=== PATIENT | female | born 1945 | race Caucasian/White ===

== ENCOUNTER 2019-04-27 14:43 | Emergency (ER) | payer MEDICAID, MEDICARE ==
--- OUTSIDE RECORDS SUMMARY | 2019-04-27 14:53 | XMS REPORT | Continuity of Care Document ---
:1945 External Reference #:[id number] Author Name Josue Dominguez Care Team Providers Name Role Phone Hodan Snyder PA Primary Care Physician Unavailable Payers Date Identification Numbers Payment Provider Subscriber Effective: 2011 Policy Number: [id number] [employer] Rhea Nolasco Group Name: Medicare [address] [address] PayID: [id number] Attn: [place] [address] Problems Active Problems Provider Date Allergic rhinitis Onset: 09/30/2018 Irritable bowel syndrome Onset: 08/07/2018 Hyperlipidemia Onset: 01/03/2016 Pure hypercholesterolemia Onset: 2012 Essential hypertension Onset: 10/26/2011 Atrial fibrillation Onset: 10/26/2011 Anxiety state Onset: 10/26/2011 Constipation Onset: 10/26/2011 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 Asthma without status asthmaticus Onset: 10/26/2011 Difficulty reading SO [place] Onset: 01/23/2019 Family History Date Family Member(s) Observation Comments Father due to Motor Vehicle () - Pinned between Accident 2 trucks Mother due to Unknown Causes () Siblings 4 First Brother Cerebrovascular Accident (CVA) Mild Second Brother Unknown First Sister GI Issues Second Sister Migraine Social History Type Date Description Comments Sex Unknown Marital Status Lives With Alone Occupation Retired ETOH Use Rarely consumes alcohol Tobacco Use Start: 11/19/64 End: Patient is a former smoker 11/19/95 Recreational Drug Use Denies Drug Use Smoking Status Reviewed: 04/17/19 Patient is a former smoker Allergies, Adverse Reactions, Alerts Active Allergies Reaction Severity Comments Date Amoxicillin hives 11/22/2018 Medications Active Medications SIG Qnty Indications Ordering Date Provider Flonase Allergy 2 sprays 9.900ml H68.001 Alexy 04/17/2019 Relief intranasal every MD Chuy 50mcg/Act day Suspension Miralax 17 grams by mouth 200GMS Alexy 01/23/2019 Powder every day as MD Chuy needed Eql Heartburn Relief one pill twice a 180tabs K21.9 Alexy 08/08/2017 Maximum Strength day MD Chuy 150mg Tablets Warfarin Sodium take as directed 100tabs [place] 10/21/2014 1mg MD Chuy Tablets Crestor 1 by mouth every 90tabs E78.5 [place] 12/17/2013 10mg Tablets day MD Chuy Lisinopril one every day 90tabs [place] 10/26/2011 5mg MD Chuy Tablets History Medications Benzonatate 1 by mouth three 30caps R05 [place] 12/24/2018 - 200mg times a day MD Chuy 01/01/2019 Capsules Doxycycline Hyclate 1 by mouth twice 20tabs J20.9 [place] 12/24/2018 - a day MD Chuy 01/01/2019 100mg Tablets Prednisone day 1and day 2 9tabs R05 [place] 03/05/2018 - 20mg two tablets MD Chuy 03/25/2018 Tablets qd,then day3,4,5 one qd,the one half tabletday 6,7,8,9 Zithromax day number one 6tabs J20.9 [place] 03/05/2018 - 250mg two qd,then MD Chuy 03/25/2018 Tablets two thru five one pill every day Tessalon Perles one pill three 30caps R05 [place] 12/12/2017 - 100mg times a day as MD Chuy 12/12/2017 Capsules needed for cough Benzonatate one three times 30caps [address] [place] [address] 12/12/2017 - 200mg a day as needed MD Chuy 02/04/2018 Capsules cough Claritin 1 by mouth every 30caps J30.9 [place] 06/08/2016 - 10mg day MD Chuy 03/26/2019 Capsules Zithromax day number one 6tabs J01.90 [place] 05/16/2016 - 250mg two qd,thendays MD Chuy 06/08/2016 Tablets two thru five one pill every day Diflucan 1 by mouth every 1tabs B37.9 Alexy 10/27/2015 - 150mg day MD [place] 01/03/2016 Tablets Doxycycline Hyclate 1 by mouth twice 20caps J20.9 Alexy 10/07/2015 - a day for 10 MD Chuy 01/03/2016 100mg Capsules days Ventolin HFA 2 puffs every 4 18units J98.01 Alexy 10/07/2015 - as needed MD Chuy 03/05/2018 108(90Base) mcg/Act Aerosol Diflucan 1 by mouth every 1tabs 112.9 Alexy 04/20/2015 - 150mg day MD Chuy 07/01/2015 Tablets Diflucan 1 by mouth every 1tabs 616.10 Alexy 02/02/2015 - 150mg day MD Chuy 07/01/2015 Tablets Triamcinolone apply to 30units 691.8 Alexy 02/02/2015 - Acetonide affected area MD Chuy 07/01/2015 0.5% Cream bid for 3 daysprn itching Florastor oe qd 564.1 Alexy 11/04/2014 - 250mg MD Chuy 05/08/2015 Capsules Levaquin 1 by mouth every 7tabs 466.0 Alexy 06/04/2014 - 500mg day MD Chuy 06/23/2014 Tablets Ventolin HFA 2 puffs every 4 1units Alexy 04/29/2014 - as needed MD Chuy 01/03/2016 108(90Base) mcg/Act Aerosol Benzonatate one three times 30caps Alexy 04/29/2014 - 200mg a day as needed MD Chuy 06/23/2014 Capsules cough Zithromax day number one 6tabs 478.9 Alexy 04/29/2014 - 250mg two qd,thendays MD Chuy 05/08/2014 Tablets two thru five one pill every day Zocor one q evening 90tabs 272.4 Alexy 06/25/2013 - 40mg Tablets MD Chuy 08/25/2013 Fenofibrate 1 po qd 90tabs Alexy 06/25/2013 - 48mg MD Chuy 06/25/2013 Tablets Atorvastatin Calcium 1 po qd 30tabs Alexy 06/25/2013 - MD Chuy 06/25/2013 80mg Tablets Biaxin 1 po bid 20tabs 681.00 Alexy 01/09/2013 - 500mg Tablets MD Chuy 06/25/2013 Simvastatin Take One Tablet 30tabs Alexy 12/31/2012 - 40mg By Mouth In The MD Chuy 08/25/2013 Tablets Evening Zithromax day number one 6tabs 466.0 Alexy 03/12/2012 - 250mg two qd,thendays MD Chuy 04/16/2012 Tablets two thru five one pill qd Aspirin Adult Low 1 po qd Alexy 10/26/2011 - Strength MD Chuy 10/21/2014 81mg [place] Simvastatin 1 qhs Alexy 10/26/2011 - 20mg MD Chuy 10/26/2011 Tablets Zocor one q evening 30tabs Alexy 10/26/2011 - 40mg Tablets MD Chuy 06/25/2013 Diflucan one qd 1tabs Alexy 10/26/2011 - 150mg MD hCuy 06/25/2013 Tablets Immunizations CPT Code Status Date Vaccine Lot # [id number] Given 09/25/2018 Fluzone High Dose 66910 Given 09/07/2016 Pneumococcal Conjugate Vaccine 13 Valent For Intramuscular Use 51248 Given 12/25/2012 Tdap - Tetanus/Diptheria/Acellular Pertussis 50506 Given 09/13/2010 Pneumonia Vaccine 61801 Refused 09/20/2017 Fluzone High Dose Vital Signs Date Vital Result Comment 04/17/2019 10:43am Weight 177.50 lb BP Systolic Sitting 120 mmHg BP Diastolic Sitting 50 mmHg 03/26/2019 10:08am Weight 178.50 lb BP Systolic Sitting 118 mmHg BP Diastolic Sitting 60 mmHg 03/26/2019 9:33am Height 65 inches 5'5" Weight 177.38 lb BP Systolic Sitting 118 mmHg BP Diastolic Sitting 60 mmHg Respiratory Rate 12 /min Body Temperature 98.8 F BMI (Body Mass Index) 29.5 kg/m2 01/23/2019 10:09am Weight 188.00 lb BP Systolic Sitting 120 mmHg BP Diastolic Sitting 60 mmHg 01/01/2019 1:02pm Weight 188.00 lb BP Systolic Sitting 124 mmHg BP Diastolic Sitting 70 mmHg 12/24/2018 2:22pm Weight 188.00 lb Respiratory Rate 16 /min Body Temperature 99.4 F 12/17/2018 2:20pm Weight 188.00 lb BP Systolic 126 mmHg BP Diastolic 76 mmHg 09/25/2018 9:55am Weight 188.00 lb BP Systolic 118 mmHg BP Diastolic 70 mmHg 08/07/2018 11:23am Weight 185.00 lb BP Systolic 120 mmHg BP Diastolic 80 mmHg 06/25/2018 10:08am Weight 185.00 lb BP Systolic 120 mmHg BP Diastolic 70 mmHg 03/25/2018 9:38am Height 65 inches Weight 174.00 lb Heart Rate 68 /min BP Systolic 126 mmHg BP Diastolic 70 mmHg Respiratory Rate 12 /min Body Temperature 98.8 F BMI (Body Mass Index) 29.0 kg/m2 03/05/2018 11:30am Weight 174.00 lb Heart Rate 77 /min BP Systolic 120 mmHg BP Diastolic 70 mmHg Body Temperature 100.3 F 02/04/2018 9:48am Weight 178.00 lb BP Systolic 122 mmHg BP Diastolic 70 mmHg 12/12/2017 3:01pm Weight 176.00 lb BP Systolic 124 mmHg BP Diastolic 74 mmHg Body Temperature 99.4 F 12/05/2017 1:01pm Weight 179.00 lb BP Systolic 128 mmHg BP Diastolic 78 mmHg 09/20/2017 9:26am Weight 181.00 lb BP Systolic 130 mmHg BP Diastolic 78 mmHg 09/05/2017 1:03pm Weight 182.00 lb BP Systolic 124 mmHg BP Diastolic 70 mmHg 06/21/2017 9:17am Weight 182.00 lb BP Systolic 124 mmHg BP Diastolic 74 mmHg 03/28/2017 1:08pm Weight 178.00 lb BP Systolic 122 mmHg BP Diastolic 70 mmHg Body Temperature 98.9 F 03/22/2017 9:23am Height 65 inches Weight 178.00 lb Heart Rate 64 /min BP Systolic 124 mmHg BP Diastolic 70 mmHg Respiratory Rate 12 /min Body Temperature 97.0 F BMI (Body Mass Index) 29.6 kg/m2 12/07/2016 9:41am Weight 185.00 lb BP Systolic 120 mmHg BP Diastolic 70 mmHg 10/19/2016 1:31pm Weight 183.00 lb BP Systolic 122 mmHg BP Diastolic 70 mmHg Body Temperature 98.9 F 09/07/2016 8:52am Weight 180.00 lb BP Systolic 126 mmHg BP Diastolic 78 mmHg 06/08/2016 9:15am Weight 179.00 lb 06/08/2016 9:46am BP Systolic 124 mmHg BP Diastolic 72 mmHg 05/16/2016 2:10pm Weight 175.00 lb Body Temperature 99.0 F 03/09/2016 9:28am Height 65.6 inches Weight 173.00 lb Heart Rate 64 /min BP Systolic 120 mmHg BP Diastolic 60 mmHg Respiratory Rate 12 /min Body Temperature 98.8 F BMI (Body Mass Index) 28.3 kg/m2 01/03/2016 9:31am Weight 177.00 lb BP Systolic 118 mmHg BP Diastolic 68 mmHg 10/27/2015 1:31pm Weight 177.00 lb BP Systolic 120 mmHg BP Diastolic 70 mmHg 10/07/2015 2:00pm Weight 177.00 lb Heart Rate 97 /min BP Systolic 120 mmHg BP Diastolic 70 mmHg Body Temperature 98.7 F 10/01/2015 10:25am Weight 177.00 lb BP Systolic 124 mmHg BP Diastolic 70 mmHg 07/21/2015 3:19pm Weight 173.00 lb BP Systolic 122 mmHg BP Diastolic 76 mmHg 07/01/2015 10:04am Weight 173.00 lb 05/14/2015 9:51am Weight 181.00 lb BP Systolic 120 mmHg BP Diastolic 80 mmHg 04/20/2015 10:04am Weight 182.00 lb 03/01/2015 9:32am Height 66 inches Weight 181.00 lb Heart Rate 66 /min BP Systolic 134 mmHg BP Diastolic 80 mmHg Respiratory Rate 14 /min Body Temperature 98.8 F BMI (Body Mass Index) 29.2 kg/m2 02/02/2015 2:58pm Weight 181.00 lb BP Systolic 122 mmHg BP Diastolic 78 mmHg 12/24/2014 8:52am Weight 183.00 lb BP Systolic 120 mmHg BP Diastolic 78 mmHg 12/24/2014 9:24am BP Systolic 120 mmHg BP Diastolic 80 mmHg 11/04/2014 1:20pm Weight 182.00 lb BP Systolic 118 mmHg BP Diastolic 70 mmHg 10/21/2014 3:26pm Weight 181.00 lb BP Systolic 112 mmHg BP Diastolic 70 mmHg 09/23/2014 8:45am Weight 187.00 lb BP Systolic 112 mmHg BP Diastolic 70 mmHg 06/23/2014 9:14am Weight 185.00 lb Heart Rate 60 /min BP Systolic 110 mmHg BP Diastolic 68 mmHg 06/08/2014 9:18am Weight 185.00 lb Heart Rate 68 /min BP Systolic 114 mmHg BP Diastolic 78 mmHg Body Temperature 97.8 F 06/04/2014 12:54pm Weight 185.00 lb BP Systolic 110 mmHg BP Diastolic 70 mmHg 05/08/2014 10:16am Weight 191.00 lb BP Systolic 124 mmHg BP Diastolic 78 mmHg 04/29/2014 10:45am Weight 191.00 lb BP Systolic 128 mmHg BP Diastolic 76 mmHg 02/26/2014 9:24am Height 66 inches Weight 196.00 lb Heart Rate 60 /min BP Systolic 126 mmHg BP Diastolic 78 mmHg Respiratory Rate 14 /min Body Temperature 98.8 F BMI (Body Mass Index) 31.6 kg/m2 12/17/2013 9:09am Weight 194.00 lb BP Systolic 126 mmHg BP Diastolic 74 mmHg 11/17/2013 9:30am Weight 191.00 lb BP Systolic 124 mmHg BP Diastolic 78 mmHg 09/25/2013 10:26am Weight 191.00 lb BP Systolic 124 mmHg BP Diastolic 78 mmHg 09/18/2013 9:27am Weight 191.00 lb BP Systolic 128 mmHg BP Diastolic 80 mmHg 08/25/2013 9:08am Weight 192.00 lb BP Systolic 110 mmHg BP Diastolic 60 mmHg 08/07/2013 3:44pm Weight 189.00 lb BP Systolic 124 mmHg BP Diastolic 80 mmHg 06/25/2013 8:57am Weight 190.00 lb BP Systolic 120 mmHg BP Diastolic 78 mmHg 03/25/2013 8:58am Weight 190.00 lb BP Systolic 124 mmHg BP Diastolic 78 mmHg 02/25/2013 11:07am Height 65.6 inches Weight 187.00 lb Heart Rate 64 /min BP Systolic 124 mmHg BP Diastolic 70 mmHg Respiratory Rate 14 /min Body Temperature 98.8 F BMI (Body Mass Index) 30.5 kg/m2 01/23/2013 2:21pm Height 65.6 inches Weight 187.00 lb Heart Rate 60 /min BP Systolic 126 mmHg BP Diastolic 78 mmHg Respiratory Rate 14 /min Body Temperature 98.7 F BMI (Body Mass Index) 30.5 kg/m2 01/09/2013 10:24am Weight 188.00 lb Body Temperature 98.7 F 12/31/2012 1:04pm Body Temperature 98.4 F 12/27/2012 9:35am Weight 188.00 lb Body Temperature 98.5 F 12/25/2012 1:18pm Weight 188.00 lb 11/25/2012 10:08am Height 65.6 inches Weight 188.00 lb BP Systolic 126 mmHg BP Diastolic 60 mmHg BMI (Body Mass Index) 30.7 kg/m2 08/27/2012 10:54am Weight 189.00 lb BP Systolic 120 mmHg BP Diastolic 80 mmHg 05/27/2012 10:14am Height 65.6 inches Weight 188.00 lb BP Systolic 128 mmHg BMI (Body Mass Index) 30.7 kg/m2 04/09/2012 11:02am Height 65.6 inches Weight 188.00 lb BP Systolic 128 mmHg BP Diastolic 78 mmHg BMI (Body Mass Index) 30.7 kg/m2 03/12/2012 9:21am Weight 188.00 lb BP Systolic 124 mmHg BP Diastolic 70 mmHg Body Temperature 99.0 F 01/25/2012 10:24am Height 65.6 inches Weight 192.00 lb BP Systolic 120 mmHg BP Diastolic 78 mmHg BMI (Body Mass Index) 31.4 kg/m2 01/12/2012 9:54am Weight 192.00 lb BP Systolic 130 mmHg BP Diastolic 78 mmHg 2012 11:01am Height 65.6 inches Weight 192.00 lb BP Systolic 128 mmHg BP Diastolic 80 mmHg BMI (Body Mass Index) 31.4 kg/m2 10/26/2011 10:26am Height 65.6 inches Weight 192.00 lb Heart Rate 70 /min BP Systolic 128 mmHg BP Diastolic 84 mmHg Respiratory Rate 14 /min Body Temperature 98.6 F BMI (Body Mass Index) 31.4 kg/m2 Results Test Date Facility Test Result H/L Range Note Liver Function Panel 09/10/2018 N2N/CCD Import Alb/Glob 1.0 ratio 1 Albumin 3.8 g/dL 3.4-5 Alkaline Phosphatase 83 U/L 45-117 Bilirubin,Direct 0.3 mg/dL High 0-0.2 Bilirubin,Indirect 1.0 mg/dL High 0-0.9 Bilirubin,Total 1.3 mg/dL High 0.2-1 Globulin 4.0 g/dL 1.9-4.3 SGPT/Alt 21 U/L 12-78 Sgot/Ast 19 U/L 15-37 Total Protein 7.8 g/dL 6.4-8.2 Basic Metabolic Panel 09/10/2018 N2N/CCD Import Anion Gap 7 mEq/L Low 8- 16 BUN 10 mg/dL 7-18 BUN/Creat 12.5 ratio Calcium 8.8 mg/dL 8.5-10.1 Carbon Dioxide 31 mmol/L 21-32 Chloride 105 mmol/L 98-107 Creatinine 0.8 mg/dL 0.6-1.3 Glom Filtration Rate, Estimate >60 mL/min Glucose 91 mg/dL 74-106 If >60 mL/min 2 Potassium 4.0 mmol/L 3.5-5.1 Sodium 143 mmol/L 136-145 CBC Auto Diff 09/10/2018 N2N/CCD Import Bas% 0.2 % 0-1.1 Baso # 0.01 K/uL 0-0.1 Eo% 0.7 % 0-6.6 Eos # 0.04 K/uL 0-0.5 Hematocrit 44.8 % 36-46.1 Hemoglobin 14.4 gm/dL 11.6-15.8 Lymph # 1.28 K/uL 1-4 Lymph % 23.9 % 20-42 Mean Cell Volume 96.3 fl 80.9-99 Mean Corpuscular HGB 31.0 pg 25.9-32.7 Mean Corpuscular HGB Conc 32.1 g/dL 30.8-34.3 Mean Platelet Volume 11.0 fL 8.9-12.4 [place] # 0.42 K/uL 0.3-0.9 [place] % 7.9 % 4.3-13.2 Neut# 3.60 K/uL 1.8-7 Neut% 67.3 % 40.4-72.8 Platelet Count 206 K/uL 155-360 Red Blood Count 4.65 M/uL 3.9-5.4 Red Cell Distri Width %CV 12.8 % 11.7-14.4 Red Cell Distri Width SD 44.0 fl 3-47 White Blood Count 5.4 K/uL 3.1-10.7 Lipid Profile (Trig/Chol/HDL) 09/10/2018 N2N/CCD Import Cholesterol 146 mg/ dL 3 HDL Cholesterol 63 mg/dL 4 LDL-Cholesterol 61 mg/dL 5 Triglycerides 110 mg/dL 6 Imaging finding 04/16/2018 N2N/CCD Import Dexa scan <pending> Liver Function Panel 03/18/2018 N2N/CCD Import Alb/Glob 0.9 ratio 7 Albumin 3.5 g/dL 3.4-5 Alkaline Phosphatase 76 U/L 45-117 Bilirubin,Direct 0.2 mg/dL 0-0.2 Bilirubin,Indirect 1.1 mg/dL High 0-0.9 Bilirubin,Total 1.3 mg/dL High 0.2-1 Globulin 4.0 g/dL 1.9-4.3 SGPT/Alt 22 U/L 12-78 Sgot/Ast 18 U/L 15-37 Total Protein 7.5 g/dL 6.4-8.2 Basic Metabolic Panel 03/18/2018 N2N/CCD Import Anion Gap 3 mEq/L Low 8- 16 BUN 8 mg/dL 7-18 BUN/Creat 11.4 ratio Calcium 9.1 mg/dL 8.5-10.1 Carbon Dioxide 31 mmol/L 21-32 Chloride 105 mmol/L 98-107 Creatinine 0.7 mg/dL 0.6-1.3 Glom Filtration Rate, Estimate >60 mL/min Glucose 91 mg/dL 74-106 If >60 mL/min 8 Potassium 4.9 mmol/L 3.5-5.1 Sodium 139 mmol/L 136-145 CBC Auto Diff 03/18/2018 N2N/CCD Import Bas% 0.3 % 0-1.1 Baso # 0.02 K/uL 0-0.1 Eo% 1.3 % 0-6.6 Eos # 0.10 K/uL 0-0.5 Hematocrit 46.0 % 36-46.1 Hemoglobin 15.1 gm/dL 11.6-15.8 Lymph # 1.42 K/uL 1-4 Lymph % 18.5 % Low 20-42 Mean Cell Volume 96.6 fl 80.9-99 Mean Corpuscular HGB 31.7 pg 25.9-32.7 Mean Corpuscular HGB Conc 32.8 g/dL 30.8-34.3 Mean Platelet Volume 10.6 fL 8.9-12.4 [place] # 0.62 K/uL 0.3-0.9 [place] % 8.1 % 4.3-13.2 Neut# 5.53 K/uL 1.8-7 Neut% 71.8 % 40.4-72.8 Platelet Count 209 K/uL 155-360 Red Blood Count 4.76 M/uL 3.9-5.4 Red Cell Distri Width %CV 13.1 % 11.7-14.4 Red Cell Distri Width SD 45.5 fl 3-47 White Blood Count 7.7 K/uL 3.1-10.7 Lipid Profile (Trig/Chol/HDL) 03/18/2018 N2N/CCD Import Cholesterol 154 mg/ dL 9 HDL Cholesterol 66 mg/dL 10 LDL-Cholesterol 60 mg/dL 11 Triglycerides 138 mg/dL 12 CBS W/Automated Diff 10/15/2017 N2N/CCD Import Bas% 0.4 % 0-1.1 13 Baso # 0.02 K/uL 0-0.1 Eo% 1.7 % 0-6.6 Eos # 0.08 K/uL 0-0.5 Hematocrit 44.1 % 36-46.1 Hemoglobin 14.4 gm/dL 11.6-15.8 Lymph # 1.33 K/uL 1-4 Lymph % 27.5 % 20-42 Mean Cell Volume 95.7 fl 80.9-99 Mean Corpuscular HGB 31.2 pg 25.9-32.7 Mean Corpuscular HGB Conc 32.7 g/dL 30.8-34.3 Mean Platelet Volume 10.5 fL 8.9-12.4 [place] # 0.38 K/uL 0.3-0.9 [place] % 7.9 % 4.3-13.2 Neut# 3.02 K/uL 1.8-7 Neut% 62.5 % 40.4-72.8 Platelet Count 199 K/uL 150-400 Red Blood Count 4.61 M/uL 3.9-5.4 Red Cell Distri Width %CV 13.0 % 11.7-14.4 Red Cell Distri Width SD 44.0 fl 3-47 White Blood Count 4.8 K/uL 3.1-10.7 Comprehensive Metabolic Panel 10/15/2017 N2N/CCD Import Alb/Glob 0.8 ratio Albumin 3.3 g/dL Low 3.4-5 Alkaline Phosphatase 77 U/L 45-117 Anion Gap 6 mEq/L Low 8-16 BUN 11 mg/dL 7-18 BUN/Creat 15.7 ratio Bilirubin,Total 1.0 mg/dL 0.2-1 Calcium 8.9 mg/dL 8.5-10.1 Carbon Dioxide 28 mmol/L 21-32 Chloride 107 mmol/L 98-107 Creatinine 0.7 mg/dL 0.6-1.3 Globulin 4.1 g/dL 1.9-4.3 Glom Filtration Rate, Estimate >60 mL/min Glucose 91 mg/dL 74-106 If >60 mL/min 14 Potassium 4.2 mmol/L 3.5-5.1 SGPT/Alt 24 U/L 12-78 Sgot/Ast 22 U/L 15-37 Sodium 141 mmol/L 136-145 Total Protein 7.4 g/dL 6.4-8.2 LDL Cholesterol Profile 10/15/2017 N2N/CCD Import Cholesterol 138 mg/dL 15 HDL Cholesterol 61 mg/dL 16 LDL-Cholesterol 56 mg/dL 17 Triglycerides 103 mg/dL 18 Protime 10/15/2017 N2N/CCD Import Anticoagulant Therapy? Yes Date of Last Dose: [id number] 1 Inr 1.8 1 High 0.9-1.1 19 Protime 20.3 s High 12-14.4 Time of Last Dose: 1900 1 Imaging finding 04/09/2017 N2N/CCD Import bilateral mammogram <pending> Protime 01/10/2017 N2N/CCD Import Anticoagulant Therapy? Yes 20 Date of Last Dose: 01/09/17 Inr 2.6 1 High 0.9-1.1 21 Protime 26.7 s High 12-14.4 Time of Last Dose: 700PM Imaging finding 10/05/2016 N2N/CCD Import left breast U/S Dx 92.8 Basic Metabolic Panel 03/23/2016 N2N/CCD Import Anion Gap 8 mEq/L 8-16 BUN 11 mg/dL 7-18 BUN/Creat 15.7 ratio Calcium 8.7 mg/dL 8.5-10.1 Carbon Dioxide 26 mmol/L 21-32 Chloride 107 mmol/L 98-107 Creatinine 0.7 mg/dL 0.6-1.3 Glom Filtration Rate, Estimate >60 mL/min Glucose 82 mg/dL 74-106 If >60 mL/min 22 Potassium 3.8 mmol/L 3.5-5.1 Sodium 141 mmol/L 136-145 LDL Cholesterol Profile 03/23/2016 N2N/CCD Import Cholesterol 136 mg/dL 23 HDL Cholesterol 51 mg/dL 24 LDL-Cholesterol 63 mg/dL 25 Triglycerides 109 mg/dL 26 Liver Function Tests 03/23/2016 N2N/CCD Import Alb/Glob 0.9 ratio Albumin 3.7 g/dL 3.4-5 Alkaline Phosphatase 74 U/L 45-117 Bilirubin,Direct 0.2 mg/dL 0-0.2 Bilirubin,Indirect 1.3 mg/dL High 0-0.9 Bilirubin,Total 1.5 mg/dL High 0.2-1 Globulin 3.9 g/dL 1.9-4.3 SGPT/Alt 31 U/L 12-78 Sgot/Ast 19 U/L 15-37 Total Protein 7.6 g/dL 6.4-8.2 Imaging finding 10/13/2015 N2N/CCD Import left breast <pending> mammography Protime 10/08/2015 N2N/CCD Import Inr 2.5 1 High 0.9-1.1 27 Protime 27.5 s High 12.1-14.9 Imaging finding 09/24/2015 N2N/CCD Import left breast U/S <pending> Basic Metabolic Panel 09/23/2015 N2N/CCD Import Anion Gap 5 mEq/L Low 8- 16 BUN 10 mg/dL 7-18 BUN/Creat 14.2 ratio Calcium 9.1 mg/dL 8.5-10.1 Carbon Dioxide 29 mmol/L 21-32 Chloride 106 mmol/L 98-107 Creatinine 0.7 mg/dL 0.6-1.3 Glom Filtration Rate, Estimate >60 mL/min Glucose 88 mg/dL 74-106 If >60 mL/min 28 Potassium 4.6 mmol/L 3.5-5.1 Sodium 140 mmol/L 136-145 LDL Cholesterol Profile 09/23/2015 N2N/CCD Import Cholesterol 161 mg/dL 29 HDL Cholesterol 54 mg/dL 30 LDL-Cholesterol 82 mg/dL 31 Triglycerides 126 mg/dL 32 Liver Function Tests 09/23/2015 N2N/CCD Import Alb/Glob 1.0 ratio Albumin 3.6 g/dL 3.4-5 Alkaline Phosphatase 84 U/L 45-117 Bilirubin,Direct 0.2 mg/dL 0-0.2 Bilirubin,Indirect 0.9 mg/dL 0-0.9 Bilirubin,Total 1.1 mg/dL High 0.2-1 Globulin 3.7 g/dL 1.9-4.3 SGPT/Alt 21 U/L 12-78 Sgot/Ast 17 U/L 15-37 Total Protein 7.3 g/dL 6.4-8.2 Protime 05/27/2015 N2N/CCD Import Inr 2.3 1 High 0.9-1.1 33 Protime 25.5 s High 12-14.4 Protime 05/12/2015 N2N/CCD Import Inr 2.6 1 High 0.9-1.1 34 Protime 28.3 s High 12-14.4 Comprehensive Metabolic Panel 05/12/2015 N2N/CCD Import Alb/Glob 0.9 ratio Albumin 3.8 g/dL 3.4-5 Alkaline Phosphatase 90 U/L 45-117 Anion Gap 6 mEq/L Low 8-16 BUN 8 mg/dL 7-18 BUN/Creat 10.0 ratio Bilirubin,Total 1.8 mg/dL High 0.2-1 Calcium 9.5 mg/dL 8.5-10.1 Carbon Dioxide 26 mmol/L 21-32 Chloride 104 mmol/L 98-107 Creatinine 0.8 mg/dL 0.6-1.3 Globulin 4.2 g/dL 1.9-4.3 Glom Filtration Rate, Estimate >60 mL/min Glucose 106 mg/dL 74-106 If >60 mL/min 35 Potassium 3.6 mmol/L 3.5-5.1 SGPT/Alt 39 U/L 12-78 Sgot/Ast 28 U/L 15-37 Sodium 136 mmol/L 136-145 Total Protein 8.0 g/dL 6.4-8.2 Urinalysis With 05/12/2015 N2N/CCD Import Urine Bilirubin - Negative Microscopic Dipstick Urine Blood Small High Urine Clarity Clear Urine Color Yellow Urine Epithelial Cells Few [place]/lpf Urine Glucose - Dipstick Negative mg/dL Urine Ketone Negative mg/dL Urine Leuk Esterase Negative Urine Nitrite - Dipstick Negative Urine PH 6.0 1 Low 6.5-7.5 Urine Protein - Dipstick Negative mg/dL Urine RBC 0-2 rbc/hpf 0-2 Urine Specific [place] <=1.005 Low 1.01-1.03 Urine Urobilinogen - Dipstick 0.2 E.U./dL 0.2-1 Urine WBC 0-2 wbc/hpf 0-7 Laboratory test finding 05/12/2015 N2N/CCD Import Urine Screen See Note 36 CBC W/Automated Diff 05/12/2015 N2N/CCD Import Bas% 0.1 % 0-1.1 Baso # 0.01 K/uL 0-0.1 Eo% 0.2 % 0-6.6 Eos # 0.02 K/uL 0-0.5 Hematocrit 44.8 % 36-46.1 Hemoglobin 15.1 gm/dL 11.6-15.8 Lymph # 1.09 K/uL Low 1.8-7 Lymph % 12.6 % Low 17-46.1 Mean Cell Volume 94.3 fl 80.9-99 Mean Corpuscular HGB 31.8 pg 25.9-32.7 Mean Corpuscular HGB Conc 33.7 g/dL 30.8-34.3 Mean Platelet Volume 10.1 fL 8.9-12.4 [place] # 0.51 K/uL 0.3-0.9 [place] % 5.9 % 4.3-13.2 Neut# 7.00 K/uL 1-7 Neut% 81.2 % High 40.4-72.8 Platelet Count 224 K/uL 155-360 Red Blood Count 4.75 M/uL 3.9-5.4 Red Cell Distri Width %CV 12.6 % 11.7-14.4 Red Cell Distri Width SD 43.0 fl 3-47 White Blood Count 8.6 K/uL 3.1-10.7 Laboratory test 05/12/2015 N2N/CCD Import Occult Blood,Stool Negative finding Laboratory test 05/12/2015 N2N/CCD Import Lipase 115 U/L 73-393 finding Basic Metabolic 03/11/2015 N2N/CCD Import Anion Gap 5 mEq/L Low 8-16 Panel BUN 9 mg/dL 7-18 BUN/Creat 11.2 ratio Calcium 8.6 mg/dL 8.5-10.1 Carbon Dioxide 29 mmol/L 21-32 Chloride 107 mmol/L 98-107 Creatinine 0.8 mg/dL 0.6-1.3 Glom Filtration Rate, Estimate >60 mL/min Glucose 94 mg/dL 74-106 If >60 mL/min 37 Potassium 4.2 mmol/L 3.5-5.1 Sodium 141 mmol/L 136-145 CBC W/Automated Diff 03/11/2015 N2N/CCD Import Bas% 0.6 % 0-1.1 Baso # 0.03 K/uL 0-0.1 Eo% 1.3 % 0-6.6 Eos # 0.07 K/uL 0-0.5 Hematocrit 42.1 % 36-46.1 Hemoglobin 14.0 gm/dL 11.6-15.8 Lymph # 1.71 K/uL Low 1.8-7 Lymph % 32.1 % 17-46.1 Mean Cell Volume 96.8 fl 80.9-99 Mean Corpuscular HGB 32.2 pg 25.9-32.7 Mean Corpuscular HGB Conc 33.3 g/dL 30.8-34.3 Mean Platelet Volume 10.4 fL 8.9-12.4 [place]fe # 0.46 K/uL 0.3-0.9 [place] % 8.6 % 4.3-13.2 Neut# 3.06 K/uL 1-7 Neut% 57.4 % 40.4-72.8 Platelet Count 235 K/uL 155-360 Red Blood Count 4.35 M/uL 3.9-5.4 Red Cell Distri Width %CV 12.6 % 11.7-14.4 Red Cell Distri Width SD 43.6 fl 3-47 White Blood Count 5.3 K/uL 3.1-10.7 LDL Cholesterol Profile 03/11/2015 [employer] Import Cholesterol 139 mg/dL 38 HDL Cholesterol 49 mg/dL 39 LDL-Cholesterol 65 mg/dL 40 Triglycerides 126 mg/dL 41 Liver Function Tests 03/11/2015 [employer] Import Alb/Glob 0.9 ratio Albumin 3.6 g/dL 3.4-5 Alkaline Phosphatase 84 U/L 45-117 Bilirubin,Direct 0.2 mg/dL 0-0.2 Bilirubin,Indirect 1.0 mg/dL High 0-0.9 Bilirubin,Total 1.2 mg/dL High 0.2-1 Globulin 3.9 g/dL 1.9-4.3 SGPT/Alt 24 U/L 12-78 Sgot/Ast 18 U/L 15-37 Total Protein 7.5 g/dL 6.4-8.2 Laboratory test finding 02/16/2014 [employer] Import CK 90 U/L 26-190 LDL Cholesterol Profile 02/16/2014 [employer] Import Cholesterol 164 mg/dL 120-200 HDL Cholesterol 55 mg/dL 29-83 LDL-Cholesterol 80 mg/dL 62-185 Triglycerides 143 mg/dL 16-231 Liver Function Tests 02/16/2014 [employer] Import Alb/Glob 1.0 ratio Albumin 3.7 g/dL 3.5-5 Alkaline Phosphatase 89 U/L 50-136 Bilirubin,Direct 0.1 mg/dL 0.1-0.4 Bilirubin,Indirect 0.7 mg/dL 0-0.9 Bilirubin,Total 0.8 mg/dL 0.2-1.2 Globulin 3.8 g/dL 1.9-4.3 SGPT/Alt 34 U/L 30-65 Sgot/Ast 24 U/L 16-40 Total Protein 7.5 g/dL 6.3-8 LDL Cholesterol Profile 12/08/2013 [employer] Import Cholesterol 177 mg/dL 120-200 HDL Cholesterol 56 mg/dL 29-83 LDL-Cholesterol 84 mg/dL 62-185 Triglycerides 187 mg/dL 16-231 Liver Function Tests 12/08/2013 [employer] Import Alb/Glob 1.0 ratio Albumin 3.6 g/dL 3.5-5 Alkaline Phosphatase 93 U/L 50-136 Bilirubin,Direct 0.1 mg/dL 0.1-0.4 Bilirubin,Indirect 0.6 mg/dL 0-0.9 Bilirubin,Total 0.7 mg/dL 0.2-1.2 Globulin 3.7 g/dL 1.9-4.3 SGPT/Alt 44 U/L 30-65 Sgot/Ast 30 U/L 16-40 Total Protein 7.3 g/dL 6.3-8 Laboratory test 12/08/2013 [employer] Import CK 76 U/L 26-190 finding LDL Cholesterol 09/22/2013 [employer] Import Cholesterol 229 mg/dL High 120- 200 Profile HDL Cholesterol 51 mg/dL 29-83 LDL-Cholesterol 152 mg/dL 62-185 Triglycerides 130 mg/dL 16-231 Liver Function Tests 09/22/2013 [employer] Import Alb/Glob 0.9 ratio Albumin 3.7 g/dL 3.5-5 Alkaline Phosphatase 105 U/L 50-136 Bilirubin,Direct 0.1 mg/dL 0.1-0.4 Bilirubin,Indirect 1.2 mg/dL High 0-0.9 Bilirubin,Total 1.3 mg/dL High 0.2-1.2 Globulin 3.9 g/dL 1.9-4.3 SGPT/Alt 31 U/L 30-65 Sgot/Ast 20 U/L 16-40 Total Protein 7.6 g/dL 6.3-8 Imaging finding 09/18/2013 N[facility] Import xray right <pending> shoulder Laboratory test 09/08/2013 [facility] Import CK 96 U/L 26-190 finding LDL Cholesterol 09/08/2013 [employer] Import Cholesterol 270 mg/dL High 120- 20 Profile 0 HDL Cholesterol 45 mg/dL 29-83 LDL-Cholesterol 177 mg/dL 62-185 Triglycerides 238 mg/dL High 16-231 Liver Function Tests 09/08/2013 N2N/[facility] Import Alb/Glob 0.9 ratio Albumin 3.4 g/dL Low 3.5-5 Alkaline Phosphatase 94 U/L 50-136 Bilirubin,Direct 0.1 mg/dL 0.1-0.4 Bilirubin,Indirect 0.6 mg/dL 0-0.9 Bilirubin,Total 0.7 mg/dL 0.2-1.2 Globulin 3.8 g/dL 1.9-4.3 SGPT/Alt 46 U/L 30-65 Sgot/Ast 29 U/L 16-40 Total Protein 7.2 g/dL 6.3-8 Laboratory test finding 08/18/2013 [facility] Import CK 319 U/L High 26-190 CK-MB (Mass) 3.6 ng/mL 0.5-8.2 Relative % Index 1.1 % 42 Basic Metabolic Panel 08/18/2013 [facility] Import Anion Gap 10 mEq/L 8-16 BUN 8 mg/dL 5-23 BUN/Creat 13.3 ratio Calcium 9.3 mg/dL 8.5-10.1 Carbon Dioxide 30 mEq/L High 18-29 Chloride 103 mmol/L 98-107 Creatinine 0.6 mg/dL 0.5-1.4 Glom Filtration Rate, Estimate >60 mL/min Glucose 93 mg/dL 76-115 If >60 mL/min 43 Potassium 4.2 mmol/L 3.5-5.1 Sodium 139 mmol/L 136-145 LDL Cholesterol Profile 08/18/2013 N[facility]N/[facility] Import Cholesterol 187 mg/dL 120-200 HDL Cholesterol 54 mg/dL 29-83 LDL-Cholesterol 81 mg/dL 62-185 Triglycerides 260 mg/dL High 16-231 Liver Function Tests 08/18/2013 [employer] Import Alb/Glob 0.9 ratio Albumin 3.6 g/dL 3.5-5 Alkaline Phosphatase 99 U/L 50-136 Bilirubin,Direct 0.1 mg/dL 0.1-0.4 Bilirubin,Indirect 0.7 mg/dL 0-0.9 Bilirubin,Total 0.8 mg/dL 0.2-1.2 Globulin 3.9 g/dL 1.9-4.3 SGPT/Alt 39 U/L 30-65 Sgot/Ast 31 U/L 16-40 Total Protein 7.5 g/dL 6.3-8 CBC W/Automated Diff 08/08/2013 [employer] Import Bas% 0.3 % 0-1.1 Baso # 0.02 K/uL 0-0.1 Eo% 1.7 % 0-6.6 Eos # 0.10 K/uL 0-0.5 Hematocrit 43.5 % 36-46.1 Hemoglobin 14.4 gm/dL 11.6-15.8 Lymph # 1.63 K/uL 0.8-3.4 Lymph % 27.5 % 17-46.1 Mean Cell Volume 94.8 fl 80.9-99 Mean Corpuscular HGB 31.4 pg 25.9-32.7 Mean Corpuscular HGB Conc 33.1 g/dL 30.8-34.3 Mean Platelet Volume 10.1 fL 8.9-12.4 Metcalfe # 0.52 K/uL 0.3-0.9 Metcalfe % 8.8 % 4.3-13.2 Neut# 3.65 K/uL 1-7 Neut% 61.7 % 40.4-72.8 Platelet Count 303 K/uL 155-360 Red Blood Count 4.59 M/uL 3.9-5.4 Red Cell Distri Width %CV 12.6 % 11.7-14.4 Red Cell Distri Width SD 42.8 fl 3-47 White Blood Count 5.9 K/uL 3.1-10.7 LDL Cholesterol Profile 06/16/2013 [employer] Import Cholesterol 129 mg/dL 120-200 HDL Cholesterol 50 mg/dL 29-83 LDL-Cholesterol 58 mg/dL Low 62-185 Triglycerides 104 mg/dL 16-231 Liver Function Tests 06/16/2013 [employer] Import Alb/Glob 1.1 ratio Albumin 3.7 g/dL 3.5-5 Alkaline Phosphatase 87 U/L 50-136 Bilirubin,Direct 0.2 mg/dL 0.1-0.4 Bilirubin,Indirect 0.8 mg/dL 0-0.9 Bilirubin,Total 1.0 mg/dL 0.2-1.2 Globulin 3.3 g/dL 1.9-4.3 SGPT/Alt 29 U/L Low 30-65 Sgot/Ast 19 U/L 16-40 Total Protein 7.0 g/dL 6.3-8 Imaging finding 03/05/2013 N2N/CCD Import bilateral <pending> screening mammogram Laboratory test 02/25/2013 [facility] Import ThinPrep Pap: See Note 44 finding Vaginal Basic Metabolic 02/13/2013 [facility] Import Anion Gap 13 mEq/L 8-16 Panel BUN 11 mg/dL 5-23 BUN/Creat 15.7 ratio Calcium 9.3 mg/dL 8.5-10.1 Carbon Dioxide 27 mEq/L 18-29 Chloride 104 mmol/L 98-107 Creatinine 0.7 mg/dL 0.5-1.4 Glom Filtration Rate, Estimate >60 mL/min Glucose 97 mg/dL 76-115 If >60 mL/min 45 Potassium 4.2 mmol/L 3.5-5.1 Sodium 140 mmol/L 136-145 CBS W/Automated Diff 02/13/2013 N2N/[facility]D Import Bas% 0.3 % 0-1.1 Baso # 0.02 K/uL 0-0.1 Eo% 1.9 % 0-6.6 Eos # 0.11 K/uL 0-0.5 Hematocrit 45.1 % 36-46.1 Hemoglobin 14.8 gm/dL 11.6-15.8 Lymph # 1.82 K/uL 0.8-3.4 Lymph % 31.7 % 17-46.1 Mean Cell Volume 94.9 fl 80.9-99 Mean Corpuscular HGB 31.2 pg 25.9-32.7 Mean Corpuscular HGB Conc 32.8 g/dL 30.8-34.3 Mean Platelet Volume 10.4 fL 8.9-12.4 Metcalfe # 0.48 K/uL 0.3-0.9 Metcalfe % 8.4 % 4.3-13.2 Neut# 3.31 K/uL 1-7 Neut% 57.7 % 40.4-72.8 Platelet Count 298 K/uL 155-360 Red Blood Count 4.75 M/uL 3.9-5.4 Red Cell Distri Width %CV 13.1 % 11.7-14.4 Red Cell Distri Width SD 44.2 fl 3-47 White Blood Count 5.7 K/uL 3.1-10.7 LDL Cholesterol 02/13/2013 [facility] Import Cholesterol 326 mg/dL High 120- 200 Profile HDL Cholesterol 55 mg/dL 29-83 LDL-Cholesterol 226 mg/dL High 62-185 Triglycerides 224 mg/dL 16-231 Liver Function Tests 02/13/2013 [facility] Import Alb/Glob 1.0 ratio Albumin 3.9 g/dL 3.5-5 Alkaline Phosphatase 94 U/L 50-136 Bilirubin,Direct 0.1 mg/dL 0.1-0.4 Bilirubin,Indirect 0.7 mg/dL 0-0.9 Bilirubin,Total 0.8 mg/dL 0.2-1.2 Globulin 3.8 g/dL 1.9-4.3 SGPT/Alt 32 U/L 30-65 Sgot/Ast 16 U/L 16-40 Total Protein 7.7 g/dL 6.3-8 Imaging finding 01/09/2013 N2N/[facility] Import xray left ring <pending> finger Laboratory test 12/25/2012 [facility] Import Aerobic Culture See Note 46 finding Gram Stain See Note 47 Basic Metabolic Panel 11/08/2012 [employer] Import Anion Gap 11 mEq/L 8-16 BUN 5 mg/dL 5-23 BUN/Creat 8.3 ratio Calcium 8.5 mg/dL 8.5-10.1 Carbon Dioxide 25 mEq/L 18-29 Chloride 110 mmol/L High 98-107 Creatinine 0.6 mg/dL 0.5-1.4 Glom Filtration Rate, Estimate >60 mL/min Glucose 106 mg/dL 76-115 If >60 mL/min 48 Potassium 3.5 mmol/L 3.5-5.1 Sodium 142 mmol/L 136-145 CBC 11/08/2012 [facility] Import Hematocrit 39.6 % 36-46.1 Hemoglobin 13.0 gm/dL 11.6-15.8 Mean Cell Volume 95.0 fl 80.9-99 Mean Corpuscular HGB 31.2 pg 25.9-32.7 Mean Corpuscular HGB Conc 32.8 g/dL 30.8-34.3 Mean Platelet Volume 10.3 fL 8.9-12.4 Platelet Count 249 K/uL 155-360 Red Blood Count 4.17 M/uL 3.9-5.4 Red Cell Distri Width %CV 12.9 % 11.7-14.4 White Blood Count 6.0 K/uL 3.1-10.7 Hemoglobin/Hematocrit 11/07/2012 [employer] Import Hematocrit 40.7 % 36- 46.1 Hemoglobin 13.4 gm/dL 11.6-15.8 Hemoglobin/Hematocrit 11/07/2012 [facility] Import Hematocrit 40.5 % 36- 46.1 Hemoglobin 13.1 gm/dL 11.6-15.8 Basic Metabolic Panel 11/07/2012 [employer] Import Anion Gap 12 mEq/L 8-16 BUN 6 mg/dL 5-23 BUN/Creat 10.0 ratio Calcium 8.7 mg/dL 8.5-10.1 Carbon Dioxide 27 mEq/L 18-29 Chloride 108 mmol/L High 98-107 Creatinine 0.6 mg/dL 0.5-1.4 Glom Filtration Rate, Estimate >60 mL/min Glucose 108 mg/dL 76-115 If >60 mL/min 49 Potassium 4.0 mmol/L 3.5-5.1 Sodium 143 mmol/L 136-145 CBC W/Automated Diff 11/07/2012 [facility] Import Bas% 0.2 % 0-1.1 Baso # 0.02 K/uL 0-0.1 Eo% 2.3 % 0-6.6 Eos # 0.19 K/uL 0-0.5 Hematocrit 41.0 % 36-46.1 Hemoglobin 13.5 gm/dL 11.6-15.8 Lymph # 1.38 K/uL 0.8-3.4 Lymph % 16.9 % Low 17-46.1 Mean Cell Volume 94.9 fl 80.9-99 Mean Corpuscular HGB 31.3 pg 25.9-32.7 Mean Corpuscular HGB Conc 32.9 g/dL 30.8-34.3 Mean Platelet Volume 10.2 fL 8.9-12.4 Metcalfe # 0.84 K/uL 0.3-0.9 Metcalfe % 10.3 % 4.3-13.2 Neut# 5.75 K/uL 1-7 Neut% 70.3 % 40.4-72.8 Platelet Count 234 K/uL 155-360 Red Blood Count 4.32 M/uL 3.9-5.4 Red Cell Distri Width %CV 12.8 % 11.7-14.4 Red Cell Distri Width SD 43.5 fl 3-47 White Blood Count 8.2 K/uL 3.1-10.7 Laboratory test finding 11/07/2012 [employer] Import Smear For WBC'S Many Smear Source: Stool Laboratory test 11/06/2012 [facility] Import Stool Occult Positive High finding Blood-Single Spec Basic Metabolic 11/06/2012 [facility] Import Anion Gap 13 mEq/L 8-16 Panel BUN 9 mg/dL 5-23 BUN/Creat 15.0 ratio Calcium 9.7 mg/dL 8.5-10.1 Carbon Dioxide 26 mEq/L 18-29 Chloride 104 mmol/L 98-107 Creatinine 0.6 mg/dL 0.5-1.4 Glom Filtration Rate, Estimate >60 mL/min Glucose 103 mg/dL 76-115 If >60 mL/min 50 Potassium 3.8 mmol/L 3.5-5.1 Sodium 139 mmol/L 136-145 CBC W/Automated Diff 11/06/2012 [employer] Import Bas% 0.2 % 0-1.1 Baso # 0.02 K/uL 0-0.1 Eo% 0.5 % 0-6.6 Eos # 0.05 K/uL 0-0.5 Hematocrit 45.3 % 36-46.1 Hemoglobin 15.4 gm/dL 11.6-15.8 Lymph # 1.43 K/uL 0.8-3.4 Lymph % 13.3 % Low 17-46.1 Mean Cell Volume 92.6 fl 80.9-99 Mean Corpuscular HGB 31.5 pg 25.9-32.7 Mean Corpuscular HGB Conc 34.0 g/dL 30.8-34.3 Mean Platelet Volume 9.6 fL 8.9-12.4 Metcalfe # 0.70 K/uL 0.3-0.9 Metcalfe % 6.5 % 4.3-13.2 Neut# 8.54 K/uL High 1-7 Neut% 79.5 % High 40.4-72.8 Platelet Count 286 K/uL 155-360 Red Blood Count 4.89 M/uL 3.9-5.4 Red Cell Distri Width %CV 12.6 % 11.7-14.4 Red Cell Distri Width SD 42.1 fl 3-47 White Blood Count 10.7 K/uL 3.1-10.7 Liver Function Tests 11/06/2012 [employer] Import Alb/Glob 1.0 ratio Albumin 4.1 g/dL 3.5-5 Alkaline Phosphatase 95 U/L 50-136 Bilirubin,Direct 0.2 mg/dL 0.1-0.4 Bilirubin,Indirect 0.7 mg/dL 0-0.9 Bilirubin,Total 0.9 mg/dL 0.2-1.2 Globulin 4.0 g/dL 1.9-4.3 SGPT/Alt 32 U/L 30-65 Sgot/Ast 15 U/L Low 16-40 Total Protein 8.1 g/dL High 6.3-8 Protime 11/06/2012 [facility] Import Inr 0.9 1 0.9-1.1 51 Protime 12.5 s 12.1-14.9 Type And Screen 11/06/2012 [facility] Import Antibody Screen Negative Patient Blood Type A Neg Basic Metabolic Panel 08/21/2012 [employer] Import Anion Gap 8 mEq/L 8-16 BUN 11 mg/dL 5-23 BUN/Creat 18.3 ratio Calcium 9.2 mg/dL 8.5-10.1 Carbon Dioxide 31 mEq/L High 18-29 Chloride 105 mmol/L 98-107 Creatinine 0.6 mg/dL 0.5-1.4 Glom Filtration Rate, Estimate >60 mL/min Glucose 92 mg/dL 76-115 If >60 mL/min 52 Potassium 3.9 mmol/L 3.5-5.1 Sodium 140 mmol/L 136-145 LDL Cholesterol Profile 08/21/2012 [employer] Import Cholesterol 173 mg/dL 120-200 HDL Cholesterol 51 mg/dL 29-83 LDL-Cholesterol 94 mg/dL 62-185 Triglycerides 142 mg/dL 16-231 Liver Function Tests 08/21/2012 [facility] Import Alb/Glob 0.9 ratio Albumin 3.6 g/dL 3.5-5 Alkaline Phosphatase 87 U/L 50-136 Bilirubin,Direct 0.1 mg/dL 0.1-0.4 Bilirubin,Indirect 0.5 mg/dL 0-0.9 Bilirubin,Total 0.6 mg/dL 0.2-1.2 Globulin 4.1 g/dL 1.9-4.3 SGPT/Alt 37 U/L 30-65 Sgot/Ast 19 U/L 16-40 Total Protein 7.7 g/dL 6.3-8 Laboratory test 05/14/2012 [facility] Import Polyp Colon See Note 53 finding And/Or Rectum Basic Metabolic Panel 01/09/2012 [facility] Import Anion Gap 13 mEq/L 8-16 BUN 11 mg/dL 5-23 BUN/Creat 15.7 ratio Calcium 9.1 mg/dL 8.5-10.1 Carbon Dioxide 28 mEq/L 18-29 Chloride 104 mmol/L 98-107 Creatinine 0.7 mg/dL 0.5-1.4 Glom Filtration Rate, Estimate >60 mL/min Glucose 95 mg/dL 76-115 If >60 mL/min 54 Potassium 3.9 mmol/L 3.5-5.1 Sodium 141 mmol/L 136-145 LDL Cholesterol Profile 01/09/2012 N2N/[facility]D Import Cholesterol 183 mg/dL 120-200 HDL Cholesterol 57 mg/dL 29-83 LDL-Cholesterol 91 mg/dL 62-185 Triglycerides 176 mg/dL 16-231 Liver Function Tests 01/09/2012 N2N/CCD Import Alb/Glob 1.0 ratio Albumin 3.8 g/dL 3.5-5 Alkaline Phosphatase 75 U/L 50-136 Bilirubin,Direct 0.1 mg/dL 0.1-0.4 Bilirubin,Indirect 0.5 mg/dL 0-0.9 Bilirubin,Total 0.6 mg/dL 0.2-1.2 Globulin 3.7 g/dL 1.9-4.3 SGPT/Alt 30 U/L 30-65 Sgot/Ast 20 U/L 16-40 Total Protein 7.5 g/dL 6.3-8 Laboratory test 12/07/2011 N2N/[facility]D Import Breast Biopsy - See Note 55 finding Permanent Only 1 I10 R78.5 J30.9 Z79.01 2 Note: Persistent reduction for 3 months or more in an eGFR <60 mL/min/1.73 m2 defines CKD. Patients with eGFR values >/=60 mL/min/1.73 m2 may also have CKD if evidence of persistent proteinuria is present. The original MDRD equation for estimated GFR is not valid for patients less than 18 years of age. Additional information may be found at [email or web address]. 3 Reference Guidelines*: Desirable: ........... < 200 mg/dL Borderline High: ..... 200-239 mg/dL High: ................ >=240 mg/dL * The National Cholesterol Education Program (NCEP) 4 Reference Guidelines*: Low HDL: ..... < 40 mg/dL Normal: ..... 40-60 mg/dL Desirable: ... > 60 mg/dL *The National Cholesterol Education Program(NCEP) 5 Reference Guidelines*: Optimal:........... <100 mg/dL Near Optimal....... 100-129 mg/dL Borderline High.... 130-159 mg/dL High............... 160-189 mg/dL Very High.......... >=190 mg/dL * Source: National Cholesterol Education Program (NCEP) 6 Reference Guidelines*: Normal: ............. < 150 mg/dL Borderline High: .... 150-199 mg/dL High: ............... 200-499 mg/dL Very High: .......... > 500 mg/dL * Source: National Cholesterol Education Program (NCEP) 7 I10, E78.5, J30.9 8 Note: Persistent reduction for 3 months or more in an eGFR <60 mL/min/1.73 m2 defines CKD. Patients with eGFR values >/=60 mL/min/1.73 m2 may also have CKD if evidence of persistent proteinuria is present. The original MDRD equation for estimated GFR is not valid for patients less than 18 years of age. Additional information may be found at [email or web address]. 9 Reference Guidelines*: Desirable: ........... < 200 mg/dL Borderline High: ..... 200-239 mg/dL High: ................ >=240 mg/dL * The National Cholesterol Education Program (NCEP) 10 Reference Guidelines*: Low HDL: ..... < 40 mg/dL Normal: ..... 40-60 mg/dL Desirable: ... > 60 mg/dL *The National Cholesterol Education Program(NCEP) 11 Reference Guidelines*: Optimal:........... <100 mg/dL Near Optimal....... 100-129 mg/dL Borderline High.... 130-159 mg/dL High............... 160-189 mg/dL Very High.......... >=190 mg/dL * Source: National Cholesterol Education Program (NCEP) 12 Reference Guidelines*: Normal: ............. < 150 mg/dL Borderline High: .... 150-199 mg/dL High: ............... 200-499 mg/dL Very High: .......... > 500 mg/dL * Source: National Cholesterol Education Program (NCEP) 13 I48.2 Z79.01 (I10,E78.2) 14 Note: Persistent reduction for 3 months or more in an eGFR <60 mL/min/1.73 m2 defines CKD. Patients with eGFR values >/=60 mL/min/1.73 m2 may also have CKD if evidence of persistent proteinuria is present. The original MDRD equation for estimated GFR is not valid for patients less than 18 years of age. Additional information may be found at [email or web address]. 15 Reference Guidelines*: Desirable: ........... < 200 mg/dL Borderline High: ..... 200-239 mg/dL High: ................ >=240 mg/dL * The National Cholesterol Education Program (NCEP) 16 Reference Guidelines*: Low HDL: ..... < 40 mg/dL Normal: ..... 40-60 mg/dL Desirable: ... > 60 mg/dL *The National Cholesterol Education Program(NCEP) 17 Reference Guidelines*: Optimal:........... <100 mg/dL Near Optimal....... 100-129 mg/dL Borderline High.... 130-159 mg/dL High............... 160-189 mg/dL Very High.......... >=190 mg/dL * Source: National Cholesterol Education Program (NCEP) 18 Reference Guidelines*: Normal: ............. < 150 mg/dL Borderline High: .... 150-199 mg/dL High: ............... 200-499 mg/dL Very High: .......... > 500 mg/dL * Source: National Cholesterol Education Program (NCEP) 19 THERAPEUTIC INR RANGE: 2.0 - 3.0 DVT, Pulmonary embolus, prophylaxis against venous thrombosis or systemic embolization in high risk patients. 2.5 - 3.5 Mechanical heart valves 20 I48.0 I48.2 Z79.01 21 THERAPEUTIC INR RANGE: 2.0 - 3.0 DVT, Pulmonary embolus, prophylaxis against venous thrombosis or systemic embolization in high risk patients. 2.5 - 3.5 Mechanical heart valves 22 Note: Persistent reduction for 3 months or more in an eGFR <60 mL/min/1.73 m2 defines CKD. Patients with eGFR values >/=60 mL/min/1.73 m2 may also have CKD if evidence of persistent proteinuria is present. The original MDRD equation for estimated GFR is not valid for patients less than 18 years of age. Additional information may be found at [email or web address]. 23 Reference Guidelines*: Desirable: ........... < 200 mg/dL Borderline High: ..... 200-239 mg/dL High: ................ >=240 mg/dL * The National Cholesterol Education Program (NCEP) 24 Reference Guidelines*: Low HDL: ..... < 40 mg/dL Normal: ..... 40-60 mg/dL Desirable: ... > 60 mg/dL *The National Cholesterol Education Program(NCEP) 25 Reference Guidelines*: Optimal:........... <100 mg/dL Near Optimal....... 100-129 mg/dL Borderline High.... 130-159 mg/dL High............... 160-189 mg/dL Very High.......... >=190 mg/dL * Source: National Cholesterol Education Program (NCEP) 26 Reference Guidelines*: Normal: ............. < 150 mg/dL Borderline High: .... 150-199 mg/dL High: ............... 200-499 mg/dL Very High: .......... > 500 mg/dL * Source: National Cholesterol Education Program (NCEP) 27 THERAPEUTIC INR RANGE: 2.0 - 3.0 DVT, Pulmonary embolus, prophylaxis against venous thrombosis or systemic embolization in high risk patients. 2.5 - 3.5 Mechanical heart valves 28 Note: Persistent reduction for 3 months or more in an eGFR <60 mL/min/1.73 m2 defines CKD. Patients with eGFR values >/=60 mL/min/1.73 m2 may also have CKD if evidence of persistent proteinuria is present. The original MDRD equation for estimated GFR is not valid for patients less than 18 years of age. Additional information may be found at [email or web address]. 29 Reference Guidelines*: Desirable: ........... < 200 mg/dL Borderline High: ..... 200-239 mg/dL High: ................ >=240 mg/dL * The National Cholesterol Education Program (NCEP) 30 Reference Guidelines*: Low HDL: ..... < 40 mg/dL Normal: ..... 40-60 mg/dL Desirable: ... > 60 mg/dL *The National Cholesterol Education Program(NCEP) 31 Reference Guidelines*: Optimal:........... <100 mg/dL Near Optimal....... 100-129 mg/dL Borderline High.... 130-159 mg/dL High............... 160-189 mg/dL Very High.......... >=190 mg/dL * Source: National Cholesterol Education Program (NCEP) 32 Reference Guidelines*: Normal: ............. < 150 mg/dL Borderline High: .... 150-199 mg/dL High: ............... 200-499 mg/dL Very High: .......... > 500 mg/dL * Source: National Cholesterol Education Program (NCEP) 33 THERAPEUTIC INR RANGE: 2.0 - 3.0 DVT, Pulmonary embolus, prophylaxis against venous thrombosis or systemic embolization in high risk patients. 2.5 - 3.5 Mechanical heart valves 34 THERAPEUTIC INR RANGE: 2.0 - 3.0 DVT, Pulmonary embolus, prophylaxis against venous thrombosis or systemic embolization in high risk patients. 2.5 - 3.5 Mechanical heart valves 35 Note: Persistent reduction for 3 months or more in an eGFR <60 mL/min/1.73 m2 defines CKD. Patients with eGFR values >/=60 mL/min/1.73 m2 may also have CKD if evidence of persistent proteinuria is present. The original MDRD equation for estimated GFR is not valid for patients less than 18 years of age. Additional information may be found at [email or web address]. 36 05/12/15 [email or web address] Deleted by [employer] [facility] 37 Note: Persistent reduction for 3 months or more in an eGFR <60 mL/min/1.73 m2 defines CKD. Patients with eGFR values >/=60 mL/min/1.73 m2 may also have CKD if evidence of persistent proteinuria is present. The original MDRD equation for estimated GFR is not valid for patients less than 18 years of age. Additional information may be found at [email or web address]. 38 Reference Guidelines*: Desirable: ........... < 200 mg/dL Borderline High: ..... 200-239 mg/dL High: ................ >=240 mg/dL * The National Cholesterol Education Program (NCEP) 39 Reference Guidelines*: Low HDL: ..... < 40 mg/dL Normal: ..... 40-60 mg/dL Desirable: ... > 60 mg/dL *The National Cholesterol Education Program(NCEP) 40 Reference Guidelines*: Optimal:........... <100 mg/dL Near Optimal....... 100-129 mg/dL Borderline High.... 130-159 mg/dL High............... 160-189 mg/dL Very High.......... >=190 mg/dL * Source: National Cholesterol Education Program (NCEP) 41 Reference Guidelines*: Normal: ............. < 150 mg/dL Borderline High: .... 150-199 mg/dL High: ............... 200-499 mg/dL Very High: .......... > 500 mg/dL * Source: National Cholesterol Education Program (NCEP) 42 < 5%=non AMI 5 - 10%=borderline for AMI > 10%=positive for AMI FOR DIAGNOSTIC PURPOSES, THE CK-MB RESULT (MASS AND RELATIVE PERCENT INDEX) SHOULD BE USED IN CONJUNCTION WITH OTHER PERTINENT CLINICAL DATA. 43 Note: Persistent reduction for 3 months or more in an eGFR <60 mL/min/1.73 m2 defines CKD. Patients with eGFR values >/=60 mL/min/1.73 m2 may also have CKD if evidence of persistent proteinuria is present. The original MDRD equation for estimated GFR is not valid for patients less than 18 years of age. Additional information may be found at [email or web address]. 44 CYTOLOGY SCREENER - RAW SHELLFISH PREPARER @ 12/30 Screened by: RAFAELA Watson(ASCP) PAP: FINAL REPORT SPECIMEN ADEQUACY: SPECIMEN SATISFACTORY FOR INTERPRETATION VAGINAL SMEAR WITH ABSENCE OF TRANSFORMATION ZONE COMPONENT INTERPRETATION: NEGATIVE FOR INTRAEPITHELIAL LESION OR MALIGNANCY COMMENT: BENIGN CELLULAR CHANGES ASSOCIATED WITH INFLAMMATION THINPREP PREPARED PAP SLIDE # Prepared in the Cytology laboratory from the ThinPrep sample is 1 ThinPrep smear. PAP ACCESSI QUESTIONNAIRE 11/28 PERTINENT CLINICAL HISTORY FOR PAP (RAW SHELLFISH PREPARER) CYTOLOGY (Check all that apply): ? N Post ? N Menopause? Y LMP date: UNK Last Pap: at [facility]? Y Abnormal Pap? N If Yes, date: If patient had related surgical procedure: What Procedure? 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 False negative and false positive results can and do occur for a number of reasons. Regular screening provides an aid in detecting treatable cervical abnormalities, but should not be used as the only means for detecting cervical dysplasia and carcinoma. GEORGETTE Ray 02/26/13 1114 45 Note: Persistent reduction for 3 months or more in an eGFR <60 mL/min/1.73 m2 defines CKD. Patients with eGFR values >/=60 mL/min/1.73 m2 may also have CKD if evidence of persistent proteinuria is present. The original MDRD equation for estimated GFR is not valid for patients less than 18 years of age. Additional information may be found at [email or web address]. 46 NO GROWTH: FINAL REPORT 47 GRAM STAIN ! NO ORGANISMS SEEN 48 Note: Persistent reduction for 3 months or more in an eGFR <60 mL/min/1.73 m2 defines CKD. Patients with eGFR values >/=60 mL/min/1.73 m2 may also have CKD if evidence of persistent proteinuria is present. The original MDRD equation for estimated GFR is not valid for patients less than 18 years of age. Additional information may be found at [email or web address]. 49 Note: Persistent reduction for 3 months or more in an eGFR <60 mL/min/1.73 m2 defines CKD. Patients with eGFR values >/=60 mL/min/1.73 m2 may also have CKD if evidence of persistent proteinuria is present. The original MDRD equation for estimated GFR is not valid for patients less than 18 years of age. Additional information may be found at [email or web address]. 50 Note: Persistent reduction for 3 months or more in an eGFR <60 mL/min/1.73 m2 defines CKD. Patients with eGFR values >/=60 mL/min/1.73 m2 may also have CKD if evidence of persistent proteinuria is present. The original MDRD equation for estimated GFR is not valid for patients less than 18 years of age. Additional information may be found at [email or web address]. 51 THERAPEUTIC INR RANGE: 2.0 - 3.0 DVT, Pulmonary embolus, prophylaxis against venous thrombosis or systemic embolization in high risk patients. 2.5 - 3.5 Mechanical heart valves 52 Note: Persistent reduction for 3 months or more in an eGFR <60 mL/min/1.73 m2 defines CKD. Patients with eGFR values >/=60 mL/min/1.73 m2 may also have CKD if evidence of persistent proteinuria is present. The original MDRD equation for estimated GFR is not valid for patients less than 18 years of age. Additional information may be found at [email or web address]. 53 OPERATION/PROCEDURE Colonoscopy DIAGNOSIS: "TRANSVERSE COLON POLYP, BIOPSY": TUBULAR ADENOMA. Jaspal GROSS "TRANSVERSE COLON POLYP". The specimen is received in an appropriately labeled container. This contains two rounded yellow colored pieces of soft tissue measuring up to 0.2 cm.; filtered and submitted in toto within a single cassette. JW/clf MICROSCOPIC Sections show colonic mucosa with tubular glands lined by columnar cells with elongated and hyperchromatic nuclei. PRE OPERATIVE DIAGNOSIS Constipation; change in bowel habits REVIEW CODE CODE: I BRIDGETT Young MD 1333 54 Note: Persistent reduction for 3 months or more in an eGFR <60 mL/min/1.73 m2 defines CKD. Patients with eGFR values >/=60 mL/min/1.73 m2 may also have CKD if evidence of persistent proteinuria is present. The original MDRD equation for estimated GFR is not valid for patients less than 18 years of age. Additional information may be found at [email or web address]. 55 OPERATION/PROCEDURE U/S right breast biopsy DIAGNOSIS: "RIGHT BREAST, NEEDLE CORE BIOPSY": SCLEROSING INTRADUCTAL PAPILLOMA. NO EVIDENCE OF MALIGNANCY FOUND. WYS/clf GROSS Received in a single container additionally labeled "RIGHT BREAST CORE BIOPSY ". This contains 0.5 mL. of yellow white cylindrical fragments; submitted in toto within a single cassette. WS/clf MICROSCOPIC Sections show an intraductal proliferation composed of prominent fibrous stroma with entrapped tubular epithelium with two cell layers. Apocrine metaplasia is also noted. PRE OPERATIVE DIAGNOSIS Solid nodular lesion 6:00 position, right breast, 3 cm from nipple 5.1 x 2.7 x 5.8 mm. REVIEW CODE CODE: I FANTA Hanson MD 12/08/11 1332 Procedures Date Code Description Status 12/24/2018 57820 Inhalation [place] For Acute Airway Obstruction Completed W/Nebulizer/Inhaler 05/15/2018 12648 Colonoscopy Flexible Diagnostic Completed 05/15/2018 73974359 Colonoscopy Completed 04/12/2018 99939884 Mammogram Completed 04/12/2018 33207 Mammography Unilateral Completed 03/05/2018 77523 Noninvasive Ear Or Pulse Oximetry For Oxygen Saturation Completed 03/05/2018 73860 Inhalation TX For Acute Airway Obstruction Completed W/Nebulizer/Inhaler 04/05/2016 34609 Bone Density Study, Single Photon Absorptiometry Completed 03/09/2016 80293 Visual funct screen test, automated Completed 03/09/2016 00814 Pure Tone Hearing Test, Air Completed 10/07/2015 40901 Inhalation [place] For Acute Airway Obstruction Completed W/Nebulizer/Inhaler 10/07/2015 24049 Noninvasive Ear Or Pulse Oximetry For Oxygen Saturation Completed 03/01/2015 87800 Screening Vision Test Completed 03/01/2015 52269 Pure Tone Hearing Test, Air Completed 06/08/2014 61518 Noninvasive Ear Or Pulse Oximetry For Oxygen Saturation Completed 06/08/2014 61012 Inhalation TX For Acute Airway Obstruction Completed W/Nebulizer/Inhaler 02/26/2014 51131 Visual funct screen test, automated Completed 02/26/2014 84541 Pure Tone Hearing Test, Air Completed 09/25/201321468 Inject/Drain Joint/Bursa Major W/O US Completed 01/23/2013 57263 EKG Tracing & Interpretation Completed 01/23/2013 56615 Pure Tone-Air Condition Only Completed 12/31/2012 47991 Inc & Removal Foreign Body Subcutaneous Tissues Completed 02/23/2010 01178 Inhalation TX For Acute Airway Obstruction Completed W/Nebulizer/Inhaler 06/04/2007 17762 Excision, Benign Lesion Scalp Neck Hands Feet Genitalia Completed 0.5 Or Le 08/10/2005 36229 Shave Of Lesion, Face,Ears,Eyelids,Nose,Lips 0.5CM Or Completed Less 03/27/2005 78536 Shave Of Lesion, Face,Ears,Eyelids,Nose,Lips 0.5CM Or Completed Less Encounters Type Date Location Provider Dx Diagnosis Office Visit 03/26/2019 [facility] [place] Z00.01 Encounter for 9:15a general adult medical exam w abnormal findings Z12.31 Encntr screen mammogram for malignant neoplasm of breast H52.10 Myopia, unspecified eye I10 Essential (primary) hypertension I48.2 Chronic atrial fibrillation M54.5 Low back pain Office Visit 01/23/2019 10:15a [facility] [place] K58.1 Irritable bowel Care syndrome with constipation I10 Essential (primary) hypertension I48.2 Chronic atrial fibrillation K21.9 Gastro-esophageal reflux disease without esophagitis Office Visit 01/01/2019 1:30p [facility] [place] K58.1 Irritable bowel Care syndrome with constipation Z12.11 Encounter for screening for malignant neoplasm of colon Office Visit 12/24/2018 2:15p [facility] [place] J06.9 Acute upper Care respiratory infection, unspecified R05 Cough J20.9 Acute bronchitis, unspecified Office Visit 12/17/2018 2:00p [facility] [place] R10.84 Generalized Care abdominal pain R14.3 Flatulence K59.00 Constipation, unspecified Plan of Treatment Future Appointment(s):05/15/2019 10:00 am - [place] at [facility]10/2019 10:00 am - [place] at [facility] Primary [facility]04/17/2019 - Hodan Snyder PAH68.001 Unspecified Eustachian salpingitis, right earNew Medication:Flonase Allergy Relief 50 mcg/Act - 2 sprays intranasal every dayJ06.9 Acute upper respiratory infection, gldngremhbzQ53.0 Recurrent oral aphthae
--- OUTSIDE RECORDS SUMMARY | 2019-04-27 14:54 | XMS REPORT | Continuity of Care Document ---
:1945 External Reference #:[id number] Author Name Josue Dominguez Care Team Providers Name Role Phone Hodan Snyder PA Primary Care Physician Unavailable Payers Date Identification Numbers Payment Provider Subscriber Effective: 2011 Policy Number: [id number] [employer] Rhea Nolasco Group Name: Medicare [address] [address] PayID: [id number] Attn: [place] [address] Problems Active Problems Provider Date Allergic rhinitis [...] Tablets Warfarin Sodium take as directed 100tabs Ransom 10/21/2014 1mg MD Chuy Tablets Crestor 1 by mouth every 90tabs E78.5 Ransom 12/17/2013 10mg Tablets day MD Chuy Lisinopril one every day 90tabs Ransom 10/26/2011 5mg MD Chuy Tablets History Medications Benzonatate 1 by mouth three 30caps R05 Ransom 12/24/2018 - 200mg times a day MD Chuy 01/01/2019 Capsules Doxycycline Hyclate 1 by mouth twice 20tabs J20.9 Ransom 12/24/2018 - a day MD Chuy 01/01/2019 100mg Tablets Prednisone day 1and day 2 9tabs R05 Ransom 03/05/2018 - 20mg two tablets MD Chuy 03/25/2018 Tablets qd,then day3,4,5 one qd,the one half tabletday 6,7,8,9 Zithromax day number one 6tabs J20.9 Ransom 03/05/2018 - 250mg two qd,then MD Chuy 03/25/2018 Tablets two thru five one pill every day Tessalon Perles one pill three 30caps R05 Ransom 12/12/2017 - 100mg times a day as MD Chuy 12/12/2017 Capsules needed for cough Benzonatate one three times 30caps [address] [place] [address] 12/12/2017 - 200mg a day as needed MD Chuy 02/04/2018 Capsules cough Claritin 1 by mouth every 30caps J30.9 Ransom 06/08/2016 - 10mg day MD Chuy 03/26/2019 Capsules Zithromax day number one 6tabs J01.90 Ransom 05/16/2016 - 250mg two qd,thendays MD Chuy 06/08/2016 Tablets two thru five one pill every day Diflucan 1 by mouth every 1tabs B37.9 Alexy 10/27/2015 - 150mg day MD Chuy 01/03/2016 Tablets Doxycycline Hyclate 1 by mouth [...] qd 1tabs Alexy 10/26/2011 - 150mg MD Chuy 06/25/2013 Tablets Immunizations CPT Code Status Date Vaccine Lot # 46969 Given 09/25/2018 Fluzone High Dose 26954 Given 09/07/2016 Pneumococcal Conjugate Vaccine 13 Valent For Intramuscular Use 82101 Given 12/25/2012 Tdap - Tetanus/Diptheria/Acellular Pertussis 09551 Given 09/13/2010 Pneumonia Vaccine 53745 Refused 09/20/2017 Fluzone High Dose Vital Signs [...] 30.8-34.3 Mean Platelet Volume 11.0 fL 8.9-12.4 [place] # 0.42 K/uL 0.3-0.9 [place] % 7.9 % 4.3-13.2 Neut# 3.60 K/uL [...] 30.8-34.3 Mean Platelet Volume 10.6 fL 8.9-12.4 [place] # 0.62 K/uL 0.3-0.9 [place] % 8.1 % 4.3-13.2 Neut# 5.53 K/uL [...] 30.8-34.3 Mean Platelet Volume 10.5 fL 8.9-12.4 [place] # 0.38 K/uL 0.3-0.9 [place] % 7.9 % 4.3-13.2 Neut# 3.02 K/uL [...] Anticoagulant Therapy? Yes Date of Last Dose: [id number] 1 Inr 1.8 1 High 0.9-1.1 19 [...] Urine RBC 0-2 rbc/hpf 0-2 Urine Specific [place] <=1.005 Low 1.01-1.03 Urine Urobilinogen - Dipstick [...] 30.8-34.3 Mean Platelet Volume 10.1 fL 8.9-12.4 [place] # 0.51 K/uL 0.3-0.9 [place] % 5.9 % 4.3-13.2 Neut# 7.00 K/uL [...] 30.8-34.3 Mean Platelet Volume 10.4 fL 8.9-12.4 [place] # 0.46 K/uL 0.3-0.9 [place] % 8.6 % 4.3-13.2 Neut# 3.06 K/uL 1-7 Neut% 57.4 % 40.4-72.8 Platelet Count 235 K/uL 155-360 Red Blood Count 4.35 M/uL 3.9-5.4 Red Cell Distri Width %CV 12.6 % 11.7-14.4 Red Cell Distri Width SD 43.6 fl 3-47 White Blood Count 5.3 K/uL 3.1-10.7 LDL Cholesterol Profile 03/11/2015 [employer] Import Cholesterol 139 mg/dL 38 HDL Cholesterol 49 mg/dL 39 LDL-Cholesterol 65 mg/dL 40 Triglycerides 126 mg/dL 41 Liver Function Tests 03/11/2015 [employer] Import Alb/Glob 0.9 ratio Albumin 3.6 g/dL 3.4-5 Alkaline Phosphatase 84 U/L 45-117 Bilirubin,Direct 0.2 mg/dL 0-0.2 Bilirubin,Indirect 1.0 mg/dL High 0-0.9 Bilirubin,Total 1.2 mg/dL High 0.2-1 Globulin 3.9 g/dL 1.9-4.3 SGPT/Alt 24 U/L 12-78 Sgot/Ast 18 U/L 15-37 Total Protein 7.5 g/dL 6.4-8.2 Laboratory test finding 02/16/2014 [employer] Import CK 90 U/L 26-190 LDL Cholesterol Profile 02/16/2014 [employer] Import Cholesterol 164 mg/dL 120-200 HDL Cholesterol 55 mg/dL 29-83 LDL-Cholesterol 80 mg/dL 62-185 Triglycerides 143 mg/dL 16-231 Liver Function Tests 02/16/2014 [employer] Import Alb/Glob 1.0 ratio Albumin 3.7 g/dL 3.5-5 Alkaline Phosphatase 89 U/L 50-136 Bilirubin,Direct 0.1 mg/dL 0.1-0.4 Bilirubin,Indirect 0.7 mg/dL 0-0.9 Bilirubin,Total 0.8 mg/dL 0.2-1.2 Globulin 3.8 g/dL 1.9-4.3 SGPT/Alt 34 U/L 30-65 Sgot/Ast 24 U/L 16-40 Total Protein 7.5 g/dL 6.3-8 LDL Cholesterol Profile 12/08/2013 [employer] Import Cholesterol 177 mg/dL 120-200 HDL Cholesterol 56 mg/dL 29-83 LDL-Cholesterol 84 mg/dL 62-185 Triglycerides 187 mg/dL 16-231 Liver Function Tests 12/08/2013 [employer] Import Alb/Glob 1.0 ratio Albumin 3.6 g/dL 3.5-5 Alkaline Phosphatase 93 U/L 50-136 Bilirubin,Direct 0.1 mg/dL 0.1-0.4 Bilirubin,Indirect 0.6 mg/dL 0-0.9 Bilirubin,Total 0.7 mg/dL 0.2-1.2 Globulin 3.7 g/dL 1.9-4.3 SGPT/Alt 44 U/L 30-65 Sgot/Ast 30 U/L 16-40 Total Protein 7.3 g/dL 6.3-8 Laboratory test 12/08/2013 [employer] Import CK 76 U/L 26-190 finding LDL Cholesterol 09/22/2013 [employer] Import Cholesterol 229 mg/dL High 120- 200 Profile HDL Cholesterol 51 mg/dL 29-83 LDL-Cholesterol 152 mg/dL 62-185 Triglycerides 130 mg/dL 16-231 Liver Function Tests 09/22/2013 [employer] Import Alb/Glob 0.9 ratio Albumin 3.7 g/dL [...] mg/dL High 16-231 Liver Function Tests 08/18/2013 [employer] Import Alb/Glob 0.9 ratio Albumin 3.6 g/dL 3.5-5 Alkaline Phosphatase 99 U/L 50-136 Bilirubin,Direct 0.1 mg/dL 0.1-0.4 Bilirubin,Indirect 0.7 mg/dL 0-0.9 Bilirubin,Total 0.8 mg/dL 0.2-1.2 Globulin 3.9 g/dL 1.9-4.3 SGPT/Alt 39 U/L 30-65 Sgot/Ast 31 U/L 16-40 Total Protein 7.5 g/dL 6.3-8 CBC W/Automated Diff 08/08/2013 [employer] Bas% 0.3 % 0-1.1 Baso # 0.02 K/uL 0-0.1 Eo% 1.7 % 0-6.6 Eos # 0.10 K/uL 0-0.5 Hematocrit 43.5 % 36-46.1 Hemoglobin 14.4 gm/dL 11.6-15.8 Lymph # 1.63 K/uL 0.8-3.4 Lymph % 27.5 % 17-46.1 Mean Cell Volume 94.8 fl 80.9-99 Mean Corpuscular HGB 31.4 pg 25.9-32.7 Mean Corpuscular HGB Conc 33.1 g/dL 30.8-34.3 Mean Platelet Volume 10.1 fL 8.9-12.4 [place] # 0.52 K/uL 0.3-0.9 [place] % 8.8 % 4.3-13.2 Neut# 3.65 K/uL 1-7 Neut% 61.7 % 40.4-72.8 Platelet Count 303 K/uL 155-360 Red Blood Count 4.59 M/uL 3.9-5.4 Red Cell Distri Width %CV 12.6 % 11.7-14.4 Red Cell Distri Width SD 42.8 fl 3-47 White Blood Count 5.9 K/uL 3.1-10.7 LDL Cholesterol Profile 06/16/2013 [employer] Import Cholesterol 129 mg/dL 120-200 HDL Cholesterol 50 mg/dL 29-83 LDL-Cholesterol 58 mg/dL Low 62-185 Triglycerides 104 mg/dL 16-231 Liver Function Tests 06/16/2013 [employer] Import Alb/Glob 1.1 ratio Albumin 3.7 g/dL [...] 30.8-34.3 Mean Platelet Volume 10.4 fL 8.9-12.4 [place] # 0.48 K/uL 0.3-0.9 [place] % 8.4 % 4.3-13.2 Neut# 3.31 K/uL [...] 30.8-34.3 Mean Platelet Volume 10.2 fL 8.9-12.4 [place] # 0.84 K/uL 0.3-0.9 [place] % 10.3 % 4.3-13.2 Neut# 5.75 K/uL [...] 30.8-34.3 Mean Platelet Volume 9.6 fL 8.9-12.4 [place] # 0.70 K/uL 0.3-0.9 [place] % 6.5 % 4.3-13.2 Neut# 8.54 K/uL [...] 36 05/12/15 [email or web address] Deleted by [facility] 37 Note: Persistent reduction for 3 [...] found at [email or web address]. 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 N Post ? N Menopause? Y LMP date: UNK Last Pap: at [facility]? Y Abnormal Pap? N If Yes, date: If patient had related surgical procedure: What Procedure? HYSTRECTOMY OOPORECTOMY Related Therapy: Yolk Spray Drier Patient Number: [id number] Significant Clinical History: V76.9 DISCLAIMER: The Pap [...] 1332 Procedures Date Code Description Status 12/24/2018 08005 Inhalation TX For Acute Airway Obstruction Completed W/Nebulizer/Inhaler 05/15/2018 09611 Colonoscopy Flexible Diagnostic Completed 05/15/2018 22393649 Colonoscopy Completed 04/12/2018 67027295 Mammogram Completed 04/12/2018 31305 Mammography Unilateral Completed 03/05/2018 59992 Noninvasive Ear Or Pulse Oximetry For Oxygen Saturation Completed 03/05/2018 77826 Inhalation TX For Acute Airway Obstruction Completed W/Nebulizer/Inhaler 04/05/2016 02244 Bone Density Study, Single Photon Absorptiometry Completed 03/09/2016 30871 Visual funct screen test, automated Completed 03/09/2016 42422 Pure Tone Hearing Test, Air Completed 10/07/2015 99099 Inhalation TX For Acute Airway Obstruction Completed W/Nebulizer/Inhaler 10/07/2015 03533 Noninvasive Ear Or Pulse Oximetry For Oxygen Saturation Completed 03/01/2015 59240 Screening Vision Test Completed 03/01/2015 17544 Pure Tone Hearing Test, Air Completed 06/08/2014 09931 Noninvasive Ear Or Pulse Oximetry For Oxygen Saturation Completed 06/08/2014 55429 Inhalation TX For Acute Airway Obstruction Completed W/Nebulizer/Inhaler 02/26/2014 52308 Visual funct screen test, automated Completed 02/26/2014 38192 Pure Tone Hearing Test, Air Completed 09/25/201320065 Inject/Drain Joint/Bursa Major W/O US Completed 01/23/2013 25500 EKG Tracing & Interpretation Completed 01/23/2013 31171 Pure Tone-Air Condition Only Completed 12/31/2012 86336 Inc & Removal Foreign Body Subcutaneous Tissues Completed 02/23/2010 01704 Inhalation [place] For Acute Airway Obstruction Completed W/Nebulizer/Inhaler 06/04/2007 05846 Excision, Benign Lesion Scalp Neck Hands Feet Genitalia Completed 0.5 Or Le 08/10/2005 82523 Shave Of Lesion, Face,Ears,Eyelids,Nose,Lips 0.5CM Or Completed Less 03/27/2005 98371 Shave Of Lesion, Face,Ears,Eyelids,Nose,Lips 0.5CM Or Completed Less Encounters Type Date Location Provider Dx Diagnosis Office Visit 03/26/2019 [facility] [place] Z00.01 Encounter for 9:15a general adult medical exam w abnormal findings Z12.31 Encntr screen mammogram for malignant neoplasm of breast H52.10 Myopia, unspecified eye I10 Essential (primary) hypertension I48.2 Chronic atrial fibrillation M54.5 Low back pain Office Visit 01/23/2019 10:15a [facility] Primary [place] K58.1 Irritable bowel Care syndrome with constipation I10 Essential (primary) hypertension I48.2 Chronic atrial fibrillation K21.9 Gastro-esophageal reflux disease without esophagitis Office Visit 01/01/2019 1:30p [facility] Primary [place] K58.1 Irritable bowel Care syndrome with constipation Z12.11 Encounter for screening for malignant neoplasm of colon Office Visit 12/24/2018 2:15p [facility] Primary [place] J06.9 Acute upper Care respiratory infection, unspecified R05 Cough J20.9 Acute bronchitis, unspecified Office Visit 12/17/2018 2:00p [facility] Primary [place] R10.84 Generalized Care abdominal pain R14.3 Flatulence K59.00 Constipation, unspecified Plan of Treatment Future Appointment(s):05/15/2019 10:00 am - [place] at [facility] Care10/2019 10:00 am - [place] at [facility] Primary [facility]04/17/2019 - Hodan Snyder PAH68.001 Unspecified Eustachian salpingitis, right earNew Medication:Flonase Allergy Relief 50 mcg/Act - 2 sprays intranasal every dayJ06.9 Acute upper respiratory infection, ggjhwojbmlqG56.0 Recurrent oral aphthae
[2019-04-27 15:01] VITALS: BP 166/61
--- NOTE | 2019-04-27 15:08 | UC ---
Ear Complaint HPI - HPI Summary HPI Summary: Right earache and popping over the past 2 days. No fever, no cold symptoms, non- smoker. - History of Current Complaint Chief Complaint: UCGeneralIllness Stated Complaint: EAR PAIN, SORE THROAT Time Seen by Provider: 04/27/19 14:48 Hx Obtained From: Patient ?: No Onset/Duration: Gradual Onset Severity Initially: Mild Severity Currently: Mild Pain Intensity: 0 Aggravating Factors: Nothing Alleviating Factors: Nothing - Allergies/Home Medications Allergies/Adverse Reactions: Allergies Allergy/AdvReac Type Severity Reaction Status Date / Time amoxicillin Allergy Hives Verified 04/27/19 15:01 Home Medications: Home Medications Lisinopril TAB* [Prinivil TAB*] 5 mg PO DAILY 04/27/19 [History Confirmed ] Rosuvastatin Calcium 10 mg PO DAILY 04/27/19 [History Confirmed 04/27/19] raNITIdine HCl [Ranitidine HCl] 150 mg PO DAILY 04/27/19 [History Confirmed 08/07] PMH/Surg Hx/FS Hx/Imm Hx Previously Healthy: Yes Cardiovascular History: Hypertension, Atrial Fibrillation Other Cardiovascular History: Slow heart rate intermittently of which her PCP is aware,due to"Leaky valve - Surgical History Surgical History: Yes Surgery Procedure, Year, and Place: 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 Pt states her PCP is aware and states it's due to a leaky valve. Is Patient Immunocompromised?: No Physical Exam Triage Information Reviewed: Yes Appearance: Well-Appearing, No Pain Distress, Well-Nourished Vital Signs: Initial Vital Signs Temp 97.5 F 04/27/19 14:56 Pulse 47 04/27/19 14:56 Resp 24 04/27/19 14:56 BP 166/61 04/27/19 14:56 Pulse Ox 98 06/09/19 14:56 Vital Signs Reviewed: Yes Eyes: Positive: Conjunctiva Clear ENT: Positive: Hearing grossly normal, Pharynx normal, TMs normal, Uvula midline Neck: Positive: Supple, Nontender, No Lymphadenopathy Respiratory: Positive: Lungs clear, Normal breath sounds, No respiratory distress, No accessory muscle use Cardiovascular: Positive: No Murmur - I did not hear a murmur today, Pulses Normal - Pulse irregular with intermittent bradycardia and then normal rate, Brisk Capillary Refill Musculoskeletal Exam: Normal Neurological Exam: Normal Psychological Exam: Normal Skin Exam: Normal Ear Complaint Course/Dx - Course Course Of Treatment: Ear exam normal. Pt to recheck as needed - Differential Dx/Diagnosis Provider Diagnosis: Otalgia of right ear Discharge - Sign-Out/Discharge Documenting (check all that apply): Patient Departure All imaging exams completed and their final reports reviewed: No Studies - Discharge Plan Condition: Good Disposition: HOME Patient Education Materials: Earache (ED) Referrals: Hodan Snyder PA [Primary Care Provider] - Additional Instructions: Recheck with your primary care provider in 3-4 days if continued pain or worsening of symptoms. - Billing Disposition and Condition Condition: GOOD Disposition: Home
== END 2019-04-27 15:16 | disposition home or self-care (01) ==
LOC: UCCORT 14:43
DX: H92.01 Otalgia, right ear (principal); R00.1 Bradycardia, unspecified; I10 Essential (primary) hypertension; I48.91 Unspecified atrial fibrillation; Z88.0 Allergy status to penicillin; Z87.891 Personal history of nicotine dependence
CPT/HCPCS: 99201; G0463